=== PATIENT | female | born 1980 | race Caucasian/White ===

== ENCOUNTER 2016-10-03 18:26 | Emergency (ER) | payer BC ==
[~2016-10-03] VITALS: Ht 177.8 cm; Wt 68.9 kg
--- NOTE | 2016-10-03 19:30 | PHYS DOC ---
General Chief Complaint: DENTAL PROBLEM Stated Complaint: DENTAL PAIN Time Seen by MD: 18:47 Source: patient Exam Limitations: no limitations Problems: History of Present Illness Initial Comments Patient is a 35-year-old male who comes in the ED complaining of dental pain and facial swelling. Patient states that he's had a bad right lower premolar for some time. He saw a dentist yesterday and was prescribed penicillin and [place] 7.5 mg. He is scheduled to follow up on Thursday. After the dental visit yesterday patient states that the [place] was not controlling his pain. The pain intensified throughout the night and this morning he had right lower mandibular swelling. His pain had receded a great deal with the new swelling. He denies fever chills sweats or myalgias no nausea or vomiting. He denies headache or airway compromise no dysphasia. In the department he is found to be afebrile with a resting heart rate in the 60s. Sepsis not considered at this point and we will hold off on imaging. Timing/Duration: yesterday Severity: severe Location: facial, dental Prearrival Treatment: over the counter meds, prescription meds Modifying Factors: worse with coughing, improves with other Associated Symptoms: facial pain/swelling, tooth pain, other Allergies: Coded Allergies: No Known Drug Allergies (Unverified , 10/03/16) Past Medical History Medical History: no pertinent history Surgical History: no surgical history Social History Smoker: non-smoker Alcohol: none Drugs: none Constitutional: denies chills, denies diaphoresis, denies fever, denies malaise Ears: denies dizziness, denies pain, denies tinnitus Nose: denies clots, denies congestion, denies epistaxis Mouth: see HPI Throat: denies pain, denies swelling, denies neck stiffness Respiratory: denies cough, denies shortness of breath Cardiovascular: denies chest pain, denies palpitations Gastrointestinal: denies diarrhea, denies nausea, denies vomiting Musculoskeletal: see HPI, denies back pain, denies joint swelling, denies neck pain Neurological: see HPI, denies headache, denies numbness, denies paresthesia Physical Exam General Appearance: WD/WN, mild distress Eyes: bilateral eye normal inspection, bilateral eye PERRL, bilateral eye EOMI Nose: normal inspection Mouth/Throat: other (right lower premolar gingival swelling with tenderness and associated right facial swelling. 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 I discussed facial swelling and airway compromise, I discussed steroids to reduce the inflammation. Although just on the penicillin for 24 hours the patient has had no improvement so we will foreign exchange services manager to clindamycin. Patient questions were answered he expressed agreement and understanding of the treatment plan. Departure Time of Disposition: 19:47 Disposition: 01 HOME, SELF-CARE Diagnosis: dental abscess with facial cellulitis Condition: GOOD Patient Instructions: Dental Abscess Additional Instructions: Aggressive hydration with gatorade, water. Discontinue penicillin and hydrocodone. Rx: prednisone, percocet 5mg #10, clindamycin Take medications with food. Return to ED with increase swelling or any issues with breathing or swallowing.l Follow up with Dentist Thursday as scheduled. Off work today and tomorrow. ANABELLE CAGLE DO Oct 03, 2016 19:30
[2016-10-03] MEDS ORDERED: methylPREDNISolone SOD SUCC PF 125 MG/2 ML VIAL. IM ONE (20:00)
[2016-10-03 20:14] VITALS: BP 110/62
== END 2016-10-03 20:15 | disposition home or self-care (01) ==
LOC: ER 18:26
DX: K04.7 Periapical abscess without sinus (principal); L03.211 Cellulitis of face
CPT/HCPCS: 96372; 99283; J2930

== ENCOUNTER 2017-04-12 15:32 | Emergency (ER) | payer BC ==
[~2017-04-12] VITALS: Ht 177.8 cm; Wt 68.9 kg
[2017-04-12 15:43] VITALS: BP 106/60
[2017-04-12 16:29] LABS: INFLUENZA A PATIENT NEGATIVE (NEGATIVE); INFLUENZA B PATIENT NEGATIVE (NEGATIVE)
--- NOTE | 2017-04-12 17:08 | PHYS DOC ---
General Chief Complaint: FLU SYMPTOM Stated Complaint: ACHY,FEVER Time Seen by MD: 16:56 Source: patient Exam Limitations: no limitations Problems: History of Present Illness Initial Comments Patient is a 36-year-old male who comes to the ED complaining of subjective fever and body aches since yesterday. Patient states that he's had generalized headache and myalgias starting last night. He's had chills and sweats no neck stiffness or rash no vomiting or diarrhea and no other focal pain complaints. He's been generally tired and sleeping more than normal or sore throat chest pain shortness of breath or cough. ED vital signs are stable patient is normally healthy immunizations are up-to-date Timing/Duration: 24 hours Severity: moderate Modifying Factors: improves with other Associated Symptoms: other Allergies: Coded Allergies: No Known Drug Allergies (Unverified , 10/03/16) Past Medical History Medical History: no pertinent history Surgical History: no surgical history Social History Smoker: non-smoker Alcohol: none Drugs: none Review of Systems Constitutional: see HPI Respiratory: denies cough, denies shortness of breath Cardiovascular: denies chest pain, denies palpitations Gastrointestinal: denies nausea, denies vomiting Musculoskeletal: see HPI Psychiatric/Neurological: see HPI, denies numbness, denies paresthesia, denies weakness Hematologic/Lymphatic: denies blood clots (neck), denies easy bleeding, denies easy bruising Physical Exam General Appearance: WD/WN, mild distress Eyes: bilateral eye normal inspection, bilateral eye PERRL, bilateral eye EOMI (no appreciated) Ear, Nose, Throat: hearing grossly normal, normal ENT inspection, normal pharynx Neck: non-tender, supple Respiratory: chest non-tender, normal breath sounds Cardiovascular: normal peripheral pulses, regular rate, rhythm Gastrointestinal: non tender, soft Back: no CVA tenderness, no vertebral tenderness Extremities: non-tender (have never), normal inspection 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 I discussed oral hydration and activity modification. I discussed signs and symptoms to monitor for as well as indications for urgent return to the department. Patient's questions were answered to his satisfaction and he expressed agreement and understanding of treatment plan. Departure Time of Disposition: 17:06 Disposition: 01 HOME, SELF-CARE Diagnosis: febrile illness Condition: GOOD Patient Instructions: Fever, Adult, [id number] Additional Instructions: Please review the patient education materials given by ED staff. Off work for the next 2 days. Aggressive hydration with Gatorade and water. [id number] Tylenol and ibuprofen as needed. Follow-up with your doctor in 3-5 days if not better. Return to ED with new or changing symptoms. ANABELLE CAGLE DO Apr 12, 2017 17:08
== END 2017-04-12 17:27 | disposition home or self-care (01) ==
LOC: ER 15:32
DX: R50.9 Fever, unspecified (principal); M79.1 Myalgia; R51 Headache
CPT/HCPCS: 87804; 99284

== ENCOUNTER 2018-12-10 09:31 | Emergency (ER) | payer BC, OTHER ==
[~2018-12-10] VITALS: Ht 177.8 cm; Wt 74.8 kg
[~2018-12-10 09:31] MED LIST: IBUP800T19 PO
[2018-12-10] MEDS ORDERED: IV NORMAL SALINE 1,000ML 1,000 ML IV SCH (09:38)
--- NOTE | 2018-12-10 09:43 | PHYS DOC ---
Past History Past Medical History: No Pertinent History Past Surgical History: No Surgical History Smoking: Non-smoker Alcohol Use: None Drug Use: None Adult General Chief Complaint Chief Complaint: SHORTNESS OF BREATH HPI HPI Patient is a 38-year-old male who presents with chest pain and shortness of breath. Patient has been battling a bronchitis for approximately the past 2 weeks, and was seen at [place] 11 days ago for this. He is not currently on any antibiotic medicines. Has a cough and runny nose. Fever with a maximum temperature of 99�. 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 He notes some chest discomfort in the midsternal region that is worse with deep breaths. He denies any trauma, stasis, or known hypercoagulable state. He was seen at [facility] yesterday and diagnosed with heat exhaustion. Continues to feel weak today and so presents to the emergency department.[] Review of Systems Review of Systems Constitutional: Denies fever or chills [] Eyes: Denies change in visual acuity, redness, or eye pain [] HENT: Denies nasal congestion or sore throat [] Respiratory: See history of present illness[] Cardiovascular: No additional information not addressed in HPI [] GI: Denies abdominal pain, nausea, vomiting, bloody stools or diarrhea [] : Denies dysuria or hematuria [] Musculoskeletal: Denies back pain or joint pain [] Integument: Denies rash or skin lesions [] Neurologic: Denies headache, focal weakness or sensory changes [] Endocrine: Denies polyuria or polydipsia [] All other systems were reviewed and found to be within normal limits, except as documented in this note. Allergies Allergies Allergies Coded Allergies Type Severity Reaction Last Updated Verified No Known Drug Allergies 12/10/18 No Physical Exam Physical Exam Constitutional: Well developed, well nourished, no acute distress, non-toxic appearance. [] HENT: Normocephalic, atraumatic, bilateral external ears normal, oropharynx moist, no oral exudates, nose normal. [] Eyes: PERRLA, EOMI, conjunctiva normal, no discharge. [] Neck: Normal range of motion, no tenderness, supple, no stridor. [] Cardiovascular:Heart rate regular rhythm, no murmur [] Lungs & Thorax: Bilateral breath sounds clear to auscultation [] Abdomen: Bowel sounds normal, soft, no tenderness, no masses, no pulsatile masses. [] Skin: Warm, dry, no erythema, no rash. [] Back: No tenderness, no CVA tenderness. [] Extremities: No tenderness, no cyanosis, no clubbing, ROM intact, no edema. [] Neurologic: Alert and oriented X 3, normal motor function, normal sensory function, no focal deficits noted. [] Psychologic: Affect normal, judgement normal, mood normal. [] Current Patient Data Vital Signs Vital Signs Date Time Temp Pulse Resp B/P (MAP) Pulse Ox O2 Delivery O2 Flow Rate FiO2 12/10/18 09:35 97.6 85 18 98 Room Air EKG EKG EKG shows a sinus rhythm at 67 bpm, normal axis, normal QTC, no ST elevations. No old EKG available for comparison. Interpreted by me at 0 948[] Radiology/Procedures Radiology/Procedures PROCEDURE: CHEST PA & LATERAL CHEST PA LATERAL History: Chest pain. Shortness of breath. Comparison: None. Findings: Metallic density projecting over the chest was removed on subsequent imaging. No consolidation or pleural effusion. Posterior basilar pleural thickening. Normal heart size. Impression: 1. No acute cardiopulmonary process.[] Course & Med Decision Making Course & Med Decision Making Pertinent Labs and Imaging studies reviewed. (See chart for details) emergency department course: Patient arrived, was placed in bed, and tolerated exam well. IV access was established and IV fluids were administered along with aspirin. Discussed findings and plan with patient who voiced understanding. All questions were answered. He was discharged in improved condition. Medical decision making: There is no evidence of acute coronary syndrome, patient's heart score is 0, no pneumonia, no pneumothorax, no pulmonary embolism, no dissecting thoracic aneurysm, no esophageal rupture. Believe this to be a confluence of factors, his bronchitis which will be treated with nebulized medicines since he has a nebulizer available at home. Also heat exhaustion from having spent the last several days delivering mail in high heat and high humidity conditions. We'll give him a couple of days to recover from this and have him follow-up with his primary care/Worker's Compensation physician since this most recent event happened while he was at work.[] Dragon Disclaimer Dragon Disclaimer This electronic medical record was generated, in whole or in part, using a voice recognition dictation system. Departure Departure: Impression: Primary Impression: Bronchitis Additional Impression: Heat exhaustion Disposition: 01 HOME, SELF-CARE Condition: IMPROVED Referrals: CLAUDIA JONES MD (PCP) Follow-up in 2 days Patient Instructions: Acute Bronchitis, Heat Illness-SportsMed Additional Instructions: Drink plenty of fluids. Follow-up with your regular doctor or worker's compensation physician in 2 days. Return to the ER if worsening difficulty breathing, fever of more than 101�, or any other concerns. Scripts D-Methorphan Hb/Prometh Hcl (PROMETHAZINE-DM SYRUP) 118 Ml Syrup 5 ML PO PRN Q4HRS for cough or congestion, #120 ML Prov: JELANI ALVAREZ DO 12/10/18 Meloxicam (MELOXICAM) 7.5 Mg Tablet 7.5 MG PO DAILY for PAIN, #20 TAB Prov: BACILIOZANEJELANI SHABAZZ 12/10/18 Albuterol Sulfate (ALBUTEROL SULFATE CONC NEB SOLN) 2.5 Mg/0.5 Ml Vial.neb 1 VIAL NEB Q6HRS for shortness of breath, #60 VIAL 0 Refills Prov: BACILIOSTEPHANIEVERNONJELANI SHABAZZ 12/10/18 HEART Score for Chest Pain PTs The HEART Score for CP Pts HEART Score for Chest Pain: HEART Score for Chest Pain Response (Comments) Value History Slighlty/Non-Suspicious 0 ECG Normal 0 Age < 45 0 Risk Factors No Risk Factors 0 Troponin < Normal Limit 0 Total 0 Risk Factors: Risk Factors: DM, Current or recent (<one month) smoker, HTN, HLP, family history of CAD, obesity. Risk Scores: Score 0 - 3: 2.5% MACE over next 6 weeks - Discharge Home Score 4 - 6: 20.3% MACE over next 6 weeks - Admit for Clinical Observation Score 7 - 10: 72.7% MACE over next 6 weeks - Early Invasive Strategies Problem Qualifiers Additional Impression: Heat exhaustion Encounter type: initial encounter Qualified Codes: T67.5XXA - Heat exhaustion, unspecified, initial encounter RODRI ALVAREZYAN SHABAZZ Dec 10, 2018 09:43
[2018-12-10] MEDS ORDERED: ASPIRIN 81 MG TAB.CHEW PO ONE (10:00)
[2018-12-10 10:04] LABS: BASO % 0 % (0-3); EOS # 0.1 x10^3/uL (0.0-0.7); EOS % 2 % (0-3); HEMATOCRIT 40.1 % (39.0-53.0); HEMOGLOBIN 13.4 g/dL (13.0-17.5); LYMPH # 0.8 x10^3/uL (1.0-4.8); LYMPH % 23 % (24-48); MEAN CORPUSCULAR HEMOGLOBIN 29 pg (25-35); MEAN CORPUSCULAR HGB CONC 33 g/dL (31-37); MEAN CORPUSCULAR VOLUME 87 fL (79-100); MONO # 0.3 x10^3/uL (0.0-1.1); MONO % 7 % (0-9); NEUT # 2.4 x10^3uL (1.8-7.7); NEUT % 68 % (31-73); PLATELET COUNT 269 x10^3/uL (140-400); RED BLOOD COUNT 4.58 x10^6/uL (4.30-5.70); RED CELL DISTRIBUTION WIDTH 12.2 % (11.5-14.5); WHITE BLOOD COUNT 3.5 x10^3/uL (4.0-11.0)
--- NOTE | 2018-12-10 10:13 | RAD ---
CHEST PA LATERAL History: Chest pain. Shortness of breath. Comparison: None. Findings: Metallic density projecting over the chest was removed on subsequent imaging. No consolidation or pleural effusion. Posterior basilar pleural thickening. Normal heart size. Impression: 1. No acute cardiopulmonary process. Electronically signed by: Kiran Fitzpatrick DO (12/10/2018 10:10 AM) [id number]
[2018-12-10 10:24] LABS: ALBUMIN 3.6 g/dL (3.4-5.0); CALCIUM 8.7 mg/dL (8.5-10.1); CREATININE 1.2 mg/dL (0.7-1.3); GFR 67.1; POTASSIUM 4.2 mmol/L (3.5-5.1); TOTAL BILIRUBIN 0.3 mg/dL (0.2-1.0); TOTAL PROTEIN 7.2 g/dL (6.4-8.2)
[2018-12-10 10:44] VITALS: BP 126/83
[2018-12-10] MEDS ORDERED: PROM118S9 PO (10:47)
[2018-12-10] MEDS ORDERED: ALBU2.5V14 NEB (10:47)
[2018-12-10] MEDS ORDERED: MELO7.5T29 PO (10:47)
--- NOTE | 2018-12-11 16:06 | EKG ---
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
== END 2018-12-10 10:52 | disposition home or self-care (01) ==
LOC: ER 09:31
DX: T67.5XXA Heat exhaustion, unspecified, initial encounter (principal); J40 Bronchitis, not specified as acute or chronic; X58.XXXA Exposure to other specified factors, initial encounter; Y93.89 Activity, other specified; Y92.89 Other specified places as the place of occurrence of the external cause; Y99.8 Other external cause status
CPT/HCPCS: 36415; 71046; 80053; 82550; 83690; 83735; 83880; 84443; 84484; 85025; 85379; 85610; 85730; 93005; 99285-25; J7030

== ENCOUNTER 2020-09-05 15:53 | Emergency (ER) | payer BC, OTHER ==
[~2020-09-05] VITALS: Ht 177.8 cm; Wt 75.6 kg
[~2020-09-05 15:53] MED LIST changes: +ALBU2.5V14 NEB; +MELO7.5T29 PO; +PROM118S10 PO
[2020-09-05] MEDS ORDERED: IV NORMAL SALINE 1,000ML 1,000 ML IV ONE (16:30)
--- NOTE | 2020-09-05 16:42 | PHYS DOC ---
Past History Past Medical History: Anxiety, Other Additional Past Medical Histor: SVT, (CHAPO DAWKINS APRN) Past Surgical History: Other Additional Past Surgical Histo: R wrist sx, cardiac ablation (CHAPO DAWKINS APRN) Smoking: Non-smoker Alcohol Use: Rarely Drug Use: None (CHAPO DAWKINS APRN) General Adult EDM: Chief Complaint: HYPERTENSION HPI: HPI: Patient is a 39-year-old male who presents with lightheadedness that started today while he was at work. Patient states "I have a past history of SVT and when I was driving I started feeling off which made me anxious". "I usually take medication for anxiety, but I have been out". "My has made an appointment for me tomorrow to get a refill on anxiety medications". Patient works outside and states that he has been drinking plenty of water today. Patient denies chest pain, shortness of breath, heart palpitations nausea/vomiting. Patient has health history of anxiety, SVT. (CHAPO DAWKINS APRN) Review of Systems: Review of Systems: Constitutional: Denies fever or chills Eyes: Denies change in visual acuity HENT: Denies nasal congestion or sore throat Respiratory: Denies cough or shortness of breath Cardiovascular: Denies chest pain or edema GI: Denies abdominal pain, nausea, vomiting, bloody stools or diarrhea : Denies dysuria Musculoskeletal: Denies back pain or joint pain Integument: Denies rash Neurologic: Denies headache. Reports lightheadedness Endocrine: Denies polyuria or polydipsia Lymphatic: Denies swollen glands Psychiatric: Reports anxiety (CHAPO DAWKINS APRN) Current Medications: Current Meds: Current Medications Medications (Trade) Dose Ordered Sig/Shira Start Time Stop Time Status Last Admin Dose Admin Lorazepam (Ativan Inj) 1 mg 1X ONCE 09/05/20 16:30 09/05/20 16:31 DC Sodium Chloride 1,000 ml @ 1,000 mls/hr 1X ONCE 09/05/20 16:30 09/05/20 17:29 (CHAPO DAWKINS APRN) Allergies: Allergies: Allergies Coded Allergies Type Severity Reaction Last Updated Verified No Known Drug Allergies 12/10/18 No (CHAPO DAWKINS APRN) Physical Exam: PE: Constitutional: Well developed, well nourished, no acute distress, non-toxic appearance. [] HENT: Normocephalic, atraumatic, bilateral external ears normal, oropharynx moist, no oral exudates, nose normal. [] Eyes: PERRLA, EOMI, conjunctiva normal, no discharge. [] Neck: Normal range of motion, no tenderness, supple, no stridor. [] Cardiovascular:Heart rate regular rhythm, no murmur [] Lungs & Thorax: Bilateral breath sounds clear to auscultation [] Abdomen: Bowel sounds normal, soft, no tenderness, no masses, no pulsatile masses. [] Skin: Warm, dry, no erythema, no rash. [] Back: No tenderness, no CVA tenderness. [] Extremities: No tenderness, no cyanosis, no clubbing, ROM intact, no edema. [] Neurologic: Alert and oriented X 3, normal motor function, normal sensory function, no focal deficits noted. [] Psychologic: Affect normal, judgement normal, mood normal. [] (CHAPO DAWKINS APRN) Current Patient Data: Vital Signs: Vital Signs Date Time Temp Pulse Resp B/P (MAP) Pulse Ox O2 Delivery O2 Flow Rate FiO2 09/05/20 16:14 98.1 75 18 136/83 (100) 99 Room Air (CHAPO DAWKINS APRN) EKG: EKG: [] Sinus rhythm. Heart rate 65 bpm. Intervals normal. [place] normal. (CHAPO DAWKINS APRN) Radiology/Procedures: Radiology/Procedures: [] (CHAPO DAWKINS APRN) Heart Score: C/O Chest Pain: No Risk Factors: Risk Factors: DM, Current or recent (<one month) smoker, HTN, HLP, family history of CAD, obesity. Risk Scores: Score 0 - 3: 2.5% MACE over next 6 weeks - Discharge Home Score 4 - 6: 20.3% MACE over next 6 weeks - Admit for Clinical Observation Score 7 - 10: 72.7% MACE over next 6 weeks - Early Invasive Strategies (CHAPO DAWKINS APRN) Course & Med Decision Making: Course & Med Decision Making Pertinent Labs and Imaging studies reviewed. (See chart for details) [] 39-year-old male presents with lightheadedness that started while at work today. Patient also has a history of anxiety and SVT. Patient's vitals are stable. Patient expressed he felt that his symptoms were more from anxiety. Patient said it been able to take his anxiety medication due to being out. Patient has an appointment tomorrow with his PCP for refill for his anxiety medications. Patient given 1 mg of Ativan while in the emergency room. EKG shows normal sinus rhythm, heart rate 65 bpm. All labs unremarkable. UDS is negative. Patient most likely was suffering from anxiety. Advised patient to keep his appointment scheduled for tomorrow with his PCP. Patient given strict return precautions. Patient is appreciative and okay with discharge plan. (CHAPO DAWKINS APRN) Dragon Disclaimer: Dragon Disclaimer: This electronic medical record was generated, in whole or in part, using a voice recognition dictation system. (CHAPO DAWKINS APRN) Attending Co-Sign The patient was seen and interviewed as well as examined at the bedside. The chart was reviewed. The case was discussed. Agree with the plan of care. (ARLETTE BARAJAS DO) Departure Departure: Impression: Primary Impression: Dizziness Additional Impression: Anxiety Disposition: 01 HOME / SELF CARE / HOMELESS Condition: STABLE Referrals: CLAUDIA JONES MD (PCP) Patient Instructions: Anxiety and Panic Attacks, [id number] Additional Instructions: You are seen in the emergency room for dizziness. All of your labs were unremarkable. You were given Ativan while in the emergency room for anxiety. Please keep your appointment with your PCP for tomorrow for a follow-up. He is return to the emergency room if you have worsening symptoms or concerns. EMERGENCY DEPARTMENT GENERAL DISCHARGE INSTRUCTIONS Thank you for coming to [facility] (ED) today and trusting us with you care. We trust that you had a positivie experience in our Emergency Department. If you wish to speak to the department management, you may call the director at [phone]. YOUR FOLLOW UP INSTRUCTIONS ARE FOLLOWS: 1. Do you have a private Doctor? If you do not have a private doctor, please ask for a resource list of physicians or clinics that may be able to assist you with follow up care. 2. The Emergency Physician has interpreted your x-rays. The X-Ray specialist will also review them. If there is a change in the findings, you will be notified in 48 hours when at all possible. 3. A lab test or culture has been done, your results will be reviewed and you will be notified if you need a change in treatment. ADDITIONAL INSTRUCTIONS AND INFORMATION: 1. Your care today has been supervised by a physician who is specially trained in emergency care. Many problems require more than one evaluation for a complete diagnosis and treatment. We recommend that you schedule your follow up appointment as recommended to ensure complete treatment of you illness or injury. If you are unable to obtain follow up care and continue to have a problem, or if your condition worsens, we recommend that you return to the ED. 2. We are not able to safely determine your condition over the phone nor are we able to give sound medical advice over the phone. For these safety reasons, if you call for medical advice we will ask you to come to the ED for further evaluation. 3. If you have any questions regarding these discharge instructions please call the ED at [phone]. SAFETY INFORMATION: In the interest of safety, wellness, and injury prevention; we encourage you to wear your sealbelt, if you smoke; quite smoking, and we encourage family to use a protective helmet for bicycling and other sporting events that present an increased risk for head injury. IF YOUR SYMPTOMS WORSEN OR NEW SYMPTOMS DEVELOP, OR YOU HAVE CONCERNS ABOUT YOUR CONDITION; OR IF YOUR CONDITION WORSENS WHILE YOU ARE WAITING FOR YOUR FOLLOW UP APPOINTMENT; EITHER CONTACT YOUR PRIMARY CARE DOCTOR, THE PHYSICIAN WHOSE NAME AND NUMBER YOU WERE GIVEN, OR RETURN TO THE ED IMMEDIATELY. CHAPO DAWKINS APRN Sep 05, 2020 16:42 ARLETTE BARAJAS DO Sep 06, 2020 06:42
--- NOTE | 2020-09-05 16:52 | EKG ---
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
[2020-09-05 16:57] LABS: BASO % 1 % (0-3); EOS # 0.1 x10^3/uL (0.0-0.7); EOS % 1 % (0-3); HEMATOCRIT 38.7 % (39.0-53.0); LYMPH # 0.9 x10^3/uL (1.0-4.8); LYMPH % 16 % (24-48); MEAN CORPUSCULAR HEMOGLOBIN 29 pg (25-35); MEAN CORPUSCULAR HGB CONC 34 g/dL (31-37); MEAN CORPUSCULAR VOLUME 87 fL (79-100); MONO # 0.4 x10^3/uL (0.0-1.1); MONO % 8 % (0-9); NEUT % 74 % (31-73); PLATELET COUNT 227 x10^3/uL (140-400); RED BLOOD COUNT 4.44 x10^6/uL (4.30-5.70); RED CELL DISTRIBUTION WIDTH 12.8 % (11.5-14.5); WHITE BLOOD COUNT 5.4 x10^3/uL (4.0-11.0)
[2020-09-05 17:05] LABS: CALCIUM 8.8 mg/dL (8.5-10.1); CREATININE 1.3 mg/dL (0.7-1.3); GFR 60.8; POTASSIUM 3.9 mmol/L (3.5-5.1)
[2020-09-05 18:07] VITALS: BP 110/67
[2020-09-05 18:17] LABS: BARBITURATES NEG (NEG); BENZODIAZEPINES NEG (NEG); CANNABINOIDS NEG (NEG); COCAINE NEG (NEG); METHADONE NEG (NEG); OPIATES NEG (NEG); PHENCYCLIDINE NEG (NEG)
[2020-09-05 18:20] LABS: AMPHETAMINE/METHAMPHETAMINE NEG (NEG)
== END 2020-09-05 18:20 | disposition home or self-care (01) ==
LOC: ER 15:53
DX: F41.9 Anxiety disorder, unspecified (principal); R42 Dizziness and giddiness
CPT/HCPCS: 36415; 80048; 80307; 85025; 93005; 96361; 96374; 99284; G0480; J2060; J7030

== ENCOUNTER 2021-02-14 14:52 | Emergency (ER) | payer OTHER ==
[~2021-02-14] VITALS: Ht 177.8 cm; Wt 75.6 kg
--- NOTE | 2021-02-14 15:27 | RAD ---
EXAM: Chest, single view. HISTORY: Palpitations. COMPARISON: 12/10/2018. FINDINGS: Frontal views of the chest are obtained. There are chronic appearing interstitial changes. There is no consolidation, pleural effusion or pneumothorax. The heart is normal in size. IMPRESSION: Chronic appearing interstitial changes. Electronically signed by: Lilly Hurley MD (02/14/2021 3:24 PM) [facility]
[2021-02-14 15:45] LABS: CALCIUM 7.9 mg/dL (8.5-10.1); CREATININE 1.3 mg/dL (0.7-1.3); GFR 60.5
[2021-02-14 15:52] LABS: BASO % 0 % (0-3); EOS # 0.1 x10^3/uL (0.0-0.7); EOS % 4 % (0-3); HEMATOCRIT 39.1 % (39.0-53.0); HEMOGLOBIN 12.8 g/dL (13.0-17.5); LYMPH # 0.7 x10^3/uL (1.0-4.8); LYMPH % 25 % (24-48); MEAN CORPUSCULAR HEMOGLOBIN 29 pg (25-35); MEAN CORPUSCULAR HGB CONC 33 g/dL (31-37); MEAN CORPUSCULAR VOLUME 89 fL (79-100); MONO # 0.3 x10^3/uL (0.0-1.1); MONO % 9 % (0-9); NEUT # 1.8 x10^3uL (1.8-7.7); NEUT % 62 % (31-73); PLATELET COUNT 253 x10^3/uL (140-400); RED BLOOD COUNT 4.41 x10^6/uL (4.30-5.70); RED CELL DISTRIBUTION WIDTH 12.9 % (11.5-14.5)
--- NOTE | 2021-02-14 15:56 | PHYS DOC ---
Past History Past Medical History: Anxiety, Other Additional Past Medical Histor: SVT, (CHAPO DAWKINS APRN) Past Surgical History: Other Additional Past Surgical Histo: R wrist sx, cardiac ablation (CHAPO DAWKINS APRN) Smoking: Non-smoker Alcohol Use: Rarely Drug Use: None (CHAPO DAWKINS APRN) General Adult EDM: Chief Complaint: Palpitations HPI: HPI: Patient is a 40-year-old male who presents with heart palpitations that started this afternoon. Patient has a history of heart palpitations and has had an ablation. Denies chest pain, shortness of breath. Denies nausea/vomiting, recent illness. Patient states that he took a Xanax prior to arrival because he was very anxious. She takes medication for anxiety and depression. (CHAPO DAWKINS APRN) Review of Systems: Review of Systems: ROS At least 10 ROS systems have been reviewed and are negative except as documented in the HPI. General: Negative except as outlined in HPI above. Skin: Negative except as outlined in HPI above. HEENT: Negative except as outlined in HPI above. Neck: Negative except as outlined in HPI above. Respiratory: Negative except as outlined in HPI above.. Cardiovascular: Negative except as outlined in HPI above. Abdomen: Negative except as outlined in HPI above. : Negative except as outlined in HPI above. Back/MSK: Negative except as outlined in HPI above. Neuro: Negative except as outlined in HPI above. Psych: Negative except as outlined in HPI above. (CHAPO DAWKINS APRN) Allergies: Allergies: Allergies Coded Allergies Type Severity Reaction Last Updated Verified No Known Drug Allergies 12/10/18 No (CHAPO DAWKINS APRN) Physical Exam: PE: Constitutional: Well developed, well nourished, no acute distress, non-toxic appearance. [] HENT: Normocephalic, atraumatic, bilateral external ears normal, oropharynx moist, no oral exudates, nose normal. [] Eyes: PERRLA, EOMI, conjunctiva normal, no discharge. [] Neck: Normal range of motion, no tenderness, supple, no stridor. [] Cardiovascular:Heart rate regular rhythm, no murmur [] Lungs & Thorax: Bilateral breath sounds clear to auscultation [] Abdomen: Bowel sounds normal, soft, no tenderness, no masses, no pulsatile masses. [] Skin: Warm, dry, no erythema, no rash. [] Back: No tenderness, no CVA tenderness. [] Extremities: No tenderness, no cyanosis, no clubbing, ROM intact, no edema. [] Neurologic: Alert and oriented X 3, normal motor function, normal sensory function, no focal deficits noted. [] Psychologic: Affect normal, judgement normal, mood normal. [] (CHAPO DAWKINS APRN) Current Patient Data: Vital Signs: Vital Signs Date Time Temp Pulse Resp B/P (MAP) Pulse Ox O2 Delivery O2 Flow Rate FiO2 02/14/21 15:03 98.0 88 16 122/74 (90) 100 Room Air (CHAPO DAWKINS APRN) EKG: EKG: Sinus rhythm. Heart rate 73 bpm. [] (CHAPO DAWKINS APRN) Radiology/Procedures: Radiology/Procedures: []EXAM: Chest, single view. HISTORY: Palpitations. COMPARISON: 12/10/2018. FINDINGS: Frontal views of the chest are obtained. There are chronic appearing interstitial changes. There is no consolidation, pleural effusion or pneumothorax. The heart is normal in size. IMPRESSION: Chronic appearing interstitial changes. Electronically signed by: Lilly Hurley MD (02/14/2021 3:24 PM) [facility] (CHAPO DAWKINS APRN) Heart Score: C/O Chest Pain: No Risk Factors: Risk Factors: DM, Current or recent (<one month) smoker, HTN, HLP, family history of CAD, obesity. Risk Scores: Score 0 - 3: 2.5% MACE over next 6 weeks - Discharge Home Score 4 - 6: 20.3% MACE over next 6 weeks - Admit for Clinical Observation Score 7 - 10: 72.7% MACE over next 6 weeks - Early Invasive Strategies (CHAPO DAWKINS APRN) Course & Med Decision Making: Course & Med Decision Making Pertinent Labs and Imaging studies reviewed. (See chart for details) [] 40-year-old male presents with heart palpitations and starts afternoon. Denies all other symptoms. Work-up in ER consisted of labs, chest x-ray, EKG. Patient appears to be very anxious. Patient said to have an ablation in the past. Patient is currently on antidepressants due to his mom and uncle passing away in October from Covid. Patient was recently tested for Covid which was negative. Patient is hemodynamically stable and does not appear to be in any acute distress All labs unremarkable. Chest x-ray is unremarkable. EKG shows sinus rhythm. Heart rate 73 bpm. She is denying all symptoms at this time. This results with patient. Advised patient he needs to follow-up with his PCP tomorrow for further management. Discussed return precautions in length with patient. Patient verbalizes he understands discharge instructions. (CHAPO DAWKINS APRN) Adaon Disclaimer: Theo Disclaimer: This electronic medical record was generated, in whole or in part, using a voice recognition dictation system. (CHAPO DAWKINS APRN) Attending Co-Sign The patient was seen and interviewed as well as examined at the bedside. The chart was reviewed. The case was discussed. Agree with the plan of care. (ARLETTE BARAJAS DO) Departure Departure: Impression: Primary Impression: Heart palpitations Disposition: HOME / SELF CARE / HOMELESS Condition: STABLE Referrals: CLAUDIA JONES MD (PCP) Patient Instructions: Palpitations, Nomm-ly-Smdf Additional Instructions: You were seen emergency room for heart palpitations. All of your labs were unremarkable. Chest x-ray was unremarkable. Please follow-up with your PCP tomorrow for further management. Return to the emergency room if you have worsening symptoms or concerns . EMERGENCY DEPARTMENT GENERAL DISCHARGE INSTRUCTIONS Thank you for coming to [facility] (ED) today and trusting us with you care. We trust that you had a positivie experience in our Emergency Department. If you wish to speak to the department management, you may call the director at [phone]. YOUR FOLLOW UP INSTRUCTIONS ARE FOLLOWS: 1. Do you have a private Doctor? If you do not have a private doctor, please ask for a resource list of physicians or clinics that may be able to assist you with follow up care. 2. The Emergency Physician has interpreted your x-rays. The X-Ray specialist will also review them. If there is a change in the findings, you will be notified in 48 hours when at all possible. 3. A lab test or culture has been done, your results will be reviewed and you will be notified if you need a change in treatment. ADDITIONAL INSTRUCTIONS AND INFORMATION: 1. Your care today has been supervised by a physician who is specially trained in emergency care. Many problems require more than one evaluation for a complete diagnosis and treatment. We recommend that you schedule your follow up appointment as recommended to ensure complete treatment of you illness or injury. If you are unable to obtain follow up care and continue to have a problem, or if your condition worsens, we recommend that you return to the ED. 2. We are not able to safely determine your condition over the phone nor are we able to give sound medical advice over the phone. For these safety reasons, if you call for medical advice we will ask you to come to the ED for further evaluation. 3. If you have any questions regarding these discharge instructions please call the ED at [phone]. SAFETY INFORMATION: In the interest of safety, wellness, and injury prevention; we encourage you to wear your sealbelt, if you smoke; quite smoking, and we encourage family to use a protective helmet for bicycling and other sporting events that present an increased risk for head injury. IF YOUR SYMPTOMS WORSEN OR NEW SYMPTOMS DEVELOP, OR YOU HAVE CONCERNS ABOUT YOUR CONDITION; OR IF YOUR CONDITION WORSENS WHILE YOU ARE WAITING FOR YOUR FOLLOW UP A PPOINTMENT; EITHER CONTACT YOUR PRIMARY CARE DOCTOR, THE PHYSICIAN WHOSE NAME AND NUMBER YOU WERE GIVEN, OR RETURN TO THE ED IMMEDIATELY. CHAPO DAWKINS APRN Feb 14, 2021 15:56 ARLETTE BARAJAS DO Feb 18, 2021 10:07
[2021-02-14 16:06] VITALS: BP 106/58
--- NOTE | 2021-02-14 17:36 | EKG ---
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
== END 2021-02-14 16:13 | disposition home or self-care (01) ==
LOC: ER 14:52
DX: R00.2 Palpitations (principal); F41.9 Anxiety disorder, unspecified
CPT/HCPCS: 36415; 71045; 80048; 84484; 85025; 93005; 99285